=== PATIENT | female | born 1990 | race African-American/Black ===

== ENCOUNTER 2018-07-18 00:16 | Observation (INO) | payer SELFPAY ==
[~2018-07-18] VITALS: Ht 162.6 cm; Wt 86.2 kg
[2018-07-18 01:34] LABS: Urine Bacteria FEW /hpf (None Seen); Urine Blood TRACE /uL (Negative); Urine Mucus FEW (None Seen); Urine Sperm PRESENT /hpf (None Seen); Urine WBC 72 /hpf (0 - 5)
[2018-07-18] MEDS ORDERED: PREN-96 PO (01:50)
[2018-07-18 01:53] LABS: Alcohol, Urine < 3.0 mg/dL (0-5); Amphetamine Screen, Urine NEGATIVE (NEGATIVE); Barbiturate Scree,Urine NEGATIVE (NEGATIVE); Benzodiazephine Screen, Urine NEGATIVE (NEGATIVE); Cannabinoid Screen, Urine NEGATIVE (NEGATIVE); Cocaine Screen, Urine NEGATIVE (NEGATIVE); Opiate Scree,Urine NEGATIVE (NEGATIVE); Phencyclidine Screen, Urine NEGATIVE (NEGATIVE)
== END 2018-07-18 02:12 | disposition home or self-care (01) | DRG 833 ==
LOC: LDRP 00:16
PROVIDERS: ADMIT Obstetrics & Gynecology; ATTEND Obstetrics & Gynecology
DX: O62.9 Abnormality of forces of labor, unspecified (principal); O26.893 Other specified pregnancy related conditions, third trimester; R10.9 Unspecified abdominal pain; Z3A.39 39 weeks gestation of pregnancy
CPT/HCPCS: 59025; 80307; 81001; 81002; G0378

== ENCOUNTER 2019-03-07 12:30 | Emergency (ER) | payer MEDICAID ==
[~2019-03-07] VITALS: Ht 154.9 cm; Wt 85.3 kg
[~2019-03-07 12:30] MED LIST: PREN-96 PO
[2019-03-07 14:24] VITALS: BP 133/94
== END 2019-03-07 15:01 | disposition home or self-care (01) ==
LOC: ER 12:35
DX: O26.892 Other specified pregnancy related conditions, second trimester (principal); R10.30 Lower abdominal pain, unspecified; Z3A.19 19 weeks gestation of pregnancy
CPT/HCPCS: 76805; 81002

== ENCOUNTER 2019-05-09 08:25 | Observation (INO) | payer MEDICAID ==
[2019-05-09] MEDS ORDERED: BETAMETHASONE ACET (6MG/ML) 5ML VIAL IM ONE (09:30)
[2019-05-09] MEDS ORDERED: LACTATED RINGER'S 1,000 ML IV ONE (09:30)
[2019-05-09 09:32] LABS: Urine Bacteria FEW /hpf (None Seen); Urine Blood TRACE /uL (Negative); Urine Mucus FEW (None Seen); Urine Specific Gravity 1.021 (1.001-1.035); Urine WBC 11 /hpf (0 - 5)
[2019-05-09 09:44] LABS: Alcohol, Urine < 3.0 mg/dL (0-5); Amphetamine Screen, Urine NEGATIVE (NEGATIVE); Barbiturate Scree,Urine NEGATIVE (NEGATIVE); Benzodiazephine Screen, Urine NEGATIVE (NEGATIVE); Cannabinoid Screen, Urine NEGATIVE (NEGATIVE); Cocaine Screen, Urine NEGATIVE (NEGATIVE); Opiate Scree,Urine NEGATIVE (NEGATIVE); Phencyclidine Screen, Urine NEGATIVE (NEGATIVE)
[2019-05-09] MEDS ORDERED: NIFEdipine 10 MG CAP PO ONE (09:45)
[2019-05-09] MEDS ORDERED: SODIUM CHLORIDE 0.9% 1,000 ML IV SCH (11:15)
[2019-05-09] MEDS ORDERED: cefTRIAXone 1GM/50ML D5W 50 ML IV ONE (11:15)
[2019-05-09] MEDS ORDERED: NIF10C GT (11:20)
[2019-05-10] MEDS ORDERED: NITR-39 PO (10:27)
== END 2019-05-09 12:55 | disposition home or self-care (01) | DRG 563 ==
LOC: LDRP 08:25
PROVIDERS: ADMIT Specialist; ATTEND Specialist
DX: O60.03 Preterm labor without delivery, third trimester (principal); O26.893 Other specified pregnancy related conditions, third trimester; N89.8 Other specified noninflammatory disorders of vagina; Z3A.28 28 weeks gestation of pregnancy
CPT/HCPCS: 59025; 76815; 76817; 80307; 81001; 81002; 96365; 96372; G0378; J0696; J0702; J7030; 96361

== ENCOUNTER 2019-05-10 09:50 | Observation (INO) | payer MEDICAID ==
[~2019-05-10] VITALS: Ht 154.9 cm; Wt 86.2 kg
[~2019-05-10 09:50] MED LIST changes: +NIF10C GT
[2019-05-10] MEDS ORDERED: BETAMETHASONE ACET (6MG/ML) 5ML VIAL IM ONE (10:00)
[2019-05-10] MEDS ORDERED: NITR-39 PO (10:27)
[2019-05-10] MEDS ORDERED: NIFEdipine 10 MG CAP PO ONE (10:45)
== END 2019-05-10 11:05 | disposition home or self-care (01) | DRG 563 ==
LOC: LDRP 09:50
PROVIDERS: ADMIT Specialist; ATTEND Specialist
DX: O60.03 Preterm labor without delivery, third trimester (principal); Z3A.28 28 weeks gestation of pregnancy
CPT/HCPCS: 59025; 81002; 96372; G0378

== ENCOUNTER 2019-05-17 09:30 | Observation (INO) | payer MEDICAID ==
[~2019-05-17 09:30] MED LIST changes: +NITR-39 PO
== END 2019-05-17 10:45 | disposition home or self-care (01) | DRG 563 ==
LOC: LDRP 09:30
PROVIDERS: ADMIT Obstetrics & Gynecology; ATTEND Obstetrics & Gynecology
DX: O60.03 Preterm labor without delivery, third trimester (principal); Z3A.29 29 weeks gestation of pregnancy
CPT/HCPCS: 59025; 76818; 81002; G0378

== ENCOUNTER 2019-05-24 09:30 | Observation (INO) | payer MEDICAID | END 2019-05-24 11:06 | disposition home or self-care (01) | DRG 563 | LOC: LDRP 09:30 | PROVIDERS: ADMIT Specialist; ATTEND Specialist | DX: O60.03 Preterm labor without delivery, third trimester (principal); Z3A.30 30 weeks gestation of pregnancy | CPT/HCPCS: 59025; 76818; 81002; G0378 ==

== ENCOUNTER 2019-05-26 19:40 | Observation (INO) | payer MEDICAID ==
[~2019-05-26] VITALS: Ht 154.9 cm; Wt 79.4 kg
[2019-05-26] MEDS ORDERED: TERBUTALINE SULFATE 1 MG/ML 1ML VIAL SC ONE (19:56)
[2019-05-26] MEDS: TERBUTALINE SULFATE 1 MG/ML 1ML VIAL SC SCH ×2 (19:58→20:20)
== END 2019-05-26 21:50 | disposition home or self-care (01) | DRG 566 ==
LOC: LDRP 19:40
PROVIDERS: ADMIT Obstetrics & Gynecology; ATTEND Obstetrics & Gynecology
DX: O26.873 Cervical shortening, third trimester (principal); O62.9 Abnormality of forces of labor, unspecified; Z3A.30 30 weeks gestation of pregnancy
CPT/HCPCS: 59025; 76815; 81002; 96372; G0378; J3105

== ENCOUNTER 2019-05-31 09:45 | Observation (INO) | payer MEDICAID | END 2019-05-31 11:22 | disposition home or self-care (01) | DRG 563 | LOC: LDRP 09:45 | PROVIDERS: ADMIT Obstetrics & Gynecology; ATTEND Obstetrics & Gynecology | DX: O60.03 Preterm labor without delivery, third trimester (principal); Z3A.31 31 weeks gestation of pregnancy | CPT/HCPCS: 59025; 76818; 81002; G0378 ==

== ENCOUNTER 2019-06-07 09:45 | Observation (INO) | payer MEDICAID | END 2019-06-07 10:30 | disposition left against medical advice (07) | DRG 566 | LOC: LDRP 09:45 | PROVIDERS: ADMIT Specialist; ATTEND Specialist | DX: O62.9 Abnormality of forces of labor, unspecified (principal); Z3A.32 32 weeks gestation of pregnancy | CPT/HCPCS: 81002; G0378 ==

== ENCOUNTER 2019-06-11 11:00 | Observation (INO) | payer MEDICAID | END 2019-06-11 14:00 | disposition home or self-care (01) | DRG 563 | LOC: LDRP 11:00 | PROVIDERS: ADMIT Specialist; ATTEND Specialist | DX: O60.03 Preterm labor without delivery, third trimester (principal); Z3A.32 32 weeks gestation of pregnancy | CPT/HCPCS: 59025; 76805; 81002; G0378 ==

== ENCOUNTER 2019-07-02 17:42 | Observation (INO) | payer MEDICAID ==
[~2019-07-02] VITALS: Ht 154.9 cm; Wt 86.2 kg
== END 2019-07-02 21:15 | disposition home or self-care (01) | DRG 566 ==
LOC: LDRP 17:42
PROVIDERS: ADMIT Obstetrics & Gynecology; ATTEND Obstetrics & Gynecology
DX: O62.9 Abnormality of forces of labor, unspecified (principal); Z3A.35 35 weeks gestation of pregnancy
CPT/HCPCS: 59025; 81002; G0378

== ENCOUNTER 2019-07-07 04:38 | Inpatient (IN) | payer MEDICAID ==
[~2019-07-07] VITALS: Ht 154.9 cm; Wt 85.3 kg
[2019-07-07] MEDS ORDERED: LACT. RINGERS/OXYTOCIN 20UNITS 1,000 ML IV SCH (05:09)
[2019-07-07] MEDS ORDERED: LACTATED RINGER'S 1,000 ML IV SCH (05:09)
[2019-07-07] MEDS ORDERED: LIDOCAINE 2%HCL (LOCAL ANESTH.) INJ 20ML MDV ID ONE (05:15)
[2019-07-07] MEDS ORDERED: METHYLERGONOVINE MALEATE 0.2 MG/ML AMP IM PRN (05:15)
[2019-07-07] MEDS ORDERED: DERMOPLAST 60ML BOTTLE TOP PRN (05:15)
[2019-07-07] MEDS ORDERED: CARBOPROST TROMETHAMINE 250 MCG/1ML VIAL IM PRN (05:15)
[2019-07-07] MEDS ORDERED: PHISODERM TOP SOLN 240ML BTL TOP PRN (05:15)
[2019-07-07] MEDS ORDERED: WITCH HAZEL-GLYCERIN PAD TOP PRN (05:15)
[2019-07-07] MEDS ORDERED: CLINDAMYCIN 900MG IV 50 ML IV SCH (06:00)
[2019-07-07 06:17] LABS: Basophils # (auto) 0 uL; Basophils % (auto) 0.2 % (0.0-2.0); Eosinophils # (auto) 0 uL; Eosinophils % (auto) 0.3 % (0.0-7.0); Hematocrit 36.9 % (36.0-46.0); Hemoglobin 11.9 g/dL (12.2-16.2); Lymphocytes # (auto) 1.9 uL; Lymphocytes % (auto) 21.8 % (10.0-50.0); Mean Corpuscular Hemoglobin 23.6 pg (28.0-32.0); Mean Corpuscular Hgb Conc. 32.2 g/dL (32.0-36.0); Mean Corpuscular Volume 73.3 fL (80.0-100.0); Monocytes # (auto) 0.6 uL; Monocytes % (auto) 6.6 % (0.0-12.0); Neutrophils # (auto) 6.2 uL; Neutrophils % (auto) 71.1 % (37.0-80.0); Nucleated Red Blood Cells % 0.2 %; Platelet Count (auto) 150 10^3/uL (140-450); Red Blood Cells 5.04 10^6/uL (4.0-5.20); Red Cell Distribution Width 16.3 % (11.8-14.3); White Blood Cell 8.7 10^3/uL (4.4-10.8)
[2019-07-07 06:31] LABS: Urine Bacteria NONE SEEN /hpf (None Seen); Urine Blood 2+ /uL (Negative); Urine Mucus FEW (None Seen); Urine Specific Gravity 1.023 (1.001-1.035); Urine WBC 2 /hpf (0 - 5)
[2019-07-07 06:33] LABS: INR 0.99 (0.9-1.15); Partial Thromboplastin Time 29.3 sec (23.64-32.05)
[2019-07-07 06:45] LABS: Alcohol, Urine < 3.0 mg/dL (0-5); Amphetamine Screen, Urine NEGATIVE (NEGATIVE); Barbiturate Scree,Urine NEGATIVE (NEGATIVE); Benzodiazephine Screen, Urine NEGATIVE (NEGATIVE); Cannabinoid Screen, Urine NEGATIVE (NEGATIVE); Cocaine Screen, Urine NEGATIVE (NEGATIVE); Opiate Scree,Urine NEGATIVE (NEGATIVE); Phencyclidine Screen, Urine NEGATIVE (NEGATIVE)
[2019-07-07 06:49] LABS: Albumin 2.8 g/dL (3.4-5.0); BUN/Creatinine Ratio 9.7; Potassium 3.4 mmol/L (3.5-5.1)
[2019-07-07 06:52] LABS: Bilirubin, Total 0.4 mg/dL (0.2-1.0); Total Protein 6.6 g/dL (6.4-8.2)
[2019-07-07] MEDS: IBUPROFEN 600 MG TAB PO PRN ×3 (06:52→22:54)
[2019-07-07] MEDS: ACETAMINOPHEN 325 MG TAB PO PRN ×2 (10:32→17:36)
[2019-07-07 11:07] VITALS: BP 111/49
[2019-07-07 15:25] VITALS: BP 90/53
[2019-07-07 19:00] VITALS: BP 116/65
--- NOTE | 2019-07-07 23:00 | NUR ---
IV removal IV DC'd with sterile technique, catheter fully intact. Pressure dressing applied to site. Patient tolerated procedure well.
[2019-07-07 23:11] VITALS: BP 110/62
[2019-07-08 03:00] VITALS: BP 122/73
[2019-07-08] MEDS: IBUPROFEN 600 MG TAB PO PRN ×2 (03:23→08:19)
[2019-07-08 07:17] VITALS: BP 103/58
[2019-07-08] MEDS ORDERED: NIF10C GT (07:54)
--- NOTE | 2019-07-08 08:00 | NUR ---
Bottle-feeding Education: Patient encouraged to breastfeed. Benefits of and the risk of providing formula to was discussed. Patient verbalized understanding of the benefits and is aware of risk and insists on bottle-feeding. Formula provided and instruction on formula preperation from the [facility] booklet reviewed with patient.
[2019-07-08 11:00] VITALS: BP 100/59
--- NOTE | 2019-07-08 11:30 | NUR ---
CALLED DELL FROM [facility] AND LET HER KNOW PATIENT STATES SHE HAS A OPEN CASE AND WOULD NOT SPECIFY ON WHY. DELL SPOKE WITH PATIENT OVER THE PHONE WHILE PATIENTS BREAKFAST MANAGER WAS ON PATIENTS CELL PHONE. PER DELL TOLD ME TO CANCEL [facility] NO NEED OPEN CASE IS FOR HER OLDEST CHILD THAT IS A RUNAWAY FROM HOME.
--- NOTE | 2019-07-08 11:47 | NUR ---
CANCEL [facility]IAL [facility] ORDER PATIENT CHANGED HER MIND AND WILL DO CAR SEAT CHALLENGE AND PATIENT STATES SHE HAS AN OPEN CASE WITH A BELT [employer] DRIER BUT IT IS FOR HER OLDEST SON WHO IS A RUNAWAY PER [facility] OKAY TO CANCEL SOCIAL SERVICE CONSULT.
--- NOTE | 2019-07-08 12:50 | NUR ---
Artificial Nipple Education: Encouraged mother to refrain from using artificial nipples which include a pacifier. Discussed the risk of artificial nipple use and its effect on effective . Mother verbalized understanding of information and continued to use artificial nipples.
[2019-07-08] MEDS: ACETAMINOPHEN 325 MG TAB PO PRN (13:19)
--- NOTE | 2019-07-08 14:35 | NUR ---
Discharge: Discharge instructions given as ordered. Pt encouraged to follow up with CEO as instructed. All questions and concerns addressed. Patient verbalized understanding. Medication reconciliation completed and copy given to patient. patient refused influenza and t-dap Patient encouraged to prepare to depart unit.
--- NOTE | 2019-07-08 15:06 | NUR ---
Discharge: Patient taken to vehicle via steady ambulation with all personal belongings, accompanied by staff and family member. No distress noted at time of departure, no adverse changes in status since initial assessment.
== END 2019-07-08 15:06 | disposition home or self-care (01) | DRG 560 ==
LOC: LDRP 04:38
PROVIDERS: ADMIT Obstetrics & Gynecology; ATTEND Obstetrics & Gynecology
PROC: 10E0XZZ Delivery of Products of Conception, External Approach (ICD-10-PCS; principal; 2019-07-07)
DX: O60.14X0 Preterm labor third trimester with preterm delivery third trimester, not applicable or unspecified (principal); O16.4 Unspecified maternal hypertension, complicating childbirth; O69.1XX0 Labor and delivery complicated by cord around neck, with compression, not applicable or unspecified; Z37.0 Single live birth; Z3A.36 36 weeks gestation of pregnancy; Z88.0 Allergy status to penicillin
CPT/HCPCS: 36415; 59025; 59409; 80053; 80307; 81001; 84112; 85025; 85610; 85730; 86850; 86900; 86901; 96361; 96366; G0378

== ENCOUNTER 2025-03-23 22:01 | Emergency (ER) | payer MEDICAID ==
[~2025-03-23] VITALS: Ht 157.5 cm; Wt 86.4 kg
[2025-03-23] MEDS: ONDANSETRON ODT 4 MG TAB PO ONE (00:15)
[2025-03-23] MEDS: ACETAMINOPHEN/CODEINE#3 (300/30mg) TAB PO ONE (00:15)
[~2025-03-23 22:01] MED LIST changes: -NIF10C GT; -NITR-39 PO
--- NOTE | 2025-03-23 22:45 | ED.PDOC ---
Musculoskeletal HPI Comments 34-year-old female presents to ER with complaints of right ankle pain x1 hour. Patient reports he started experiencing pain/swelling to right ankle 1 hour prior to arrival to ER. Denies any trauma/falls/known injury and rates her current pain a 10/10 to right ankle with radiation towards her right foot. No baudilio that she did take Tylenol for her pain with slight relief and presents to ER ambulatory on arrival, with steady gait, in no distress. Denies fever, numbness/tingling or any further symptoms/complaints Chief Complaint: Lower Extremity Time Seen by MD: 22:08 Primary Care Provider: BIBIANA Reviewed Notes: Nurses Notes, Medications, Allergies Allergies: Coded Allergies: Hydrocodone (Verified Allergy, Unknown, 03/23/25) Penicillins (Verified Allergy, Unknown, 09/15/19) hives Home Meds Reported Medications Vit W/ Ferrous Fumara ( One Daily) Daily Tab, 1 TAB PO DAILY, #90 TAB 3 Refills 07/18/18 Information Source: Patient Mode of Arrival: Ambulatory Past Medical History PAST MEDICAL HISTORY: Denies Surgical History: Tubal Ligation SENIOR OPERATIONS MANAGER History: Denies all SENIOR OPERATIONS MANAGER Hx Family History Family History: Unknown Social History Smoker: Non-Smoker Alcohol: Denies ETOH Use Drugs: Denies Drug Use Lives In: Home Constitutional: denies: chills, diaphoresis, fatigue, fever, malaise, sweats, weakness, others EENTM: denies: blurred vision, double vision, ear bleeding, ear discharge, ear drainage, ear pain, ear ringing, eye pain, eye redness, hearing loss, mouth pain, mouth swelling, nasal discharge, nose bleeding, nose congestion, nose pain, photophobia, tearing, throat pain, throat swelling, voice changes, others Respiratory: denies: cough, hemoptysis, orthopnea, SOB at rest, shortness of breath, SOB with excertion, stridor, wheezing, others Cardiovascular: denies: chest pain, dizzy spells, diaphoresis, Dyspnea on exertion, edema, irregular heart beat, left arm pain, lightheadedness, palpitations, PND, syncope, others Gastrointestinal: denies: abdomen distended, abdominal pain, blood streaked bowels, constipated, diarrhea, dysphagia, difficulty swallowing, hematemesis, melena, nausea, poor appetite, poor fluid intake, rectal bleeding, rectal pain, vomiting, others Genitourinary: denies: abnormal vagina bleeding, burning, dyspareunia, dysuria, flank pain, frequency, hematuria, incontinence, pain, , vagina discharge, urgency, others Neurological: denies: dizziness, fainting, headache, left sided numbness, left sided weakness, numbness, paresthesia, pre-existing deficit, right sided numbness, right sided weakness, seizure, speech problems, tingling, tremors, weakness, others Musculoskeletal: reports: others (As stated in HPI) Integumetry: reports: others (As stated in HPI) Allergic/Immunocompromised: denies: Difficulty Healing, Frequent Infections, Hives, Itching, others Hematologic/Lymphatic: denies: anemia, blood clots, easy bleeding, easy bruising, swollen glands, others Endocrine: denies: excessive hunger, excessive sweating, excessive thirst, excessive urination, flushing, intolerance to cold, intolerance to heat, unexplained weight gain, unexplained weight loss, others Psychiatric: denies: anxiety, bipolar disorder, depression, hopeless, panic disorder, schizophrenia, sleepless, suicidal, others Physical Exam General Appearance: No Apparent Distress, Obese HEENT: PERRL/EOMI Neck: Full Range of Motion, Non-Tender, Normal Respiratory: Chest Non-Tender, Lungs Clear, No Accessory Muscle Use, No Respiratory Distress, Normal Breath Sounds Cardiovascular: No Murmur, No Gallop, Regular Rate/Rhythm Breast Exam: Deferred Gastrointestinal: NOT DONE Genitalia: Deferred Pelvic: Deferred Rectal: Deferred Extremities: Normal capillary refill, Normal range of motion Musculoskeletal : Extremity Location: Ankle (TTP/minimal swelling noted to right lateral malleolus. No further skin changes noted. No other TTP to right lower extremity noted) Neurologic: Alert, No Motor Deficits, Normal Affect, Normal Mood, No Sensory Deficits Cerebellar Function: Normal Reflexes: Normal Skin: Dry, Normal Color, Warm Peripheral Pulses: 2+ femoral (R), 2+ femoral (L), 2+ dorsalis pedis (R), 2+ dorsalis pedis (L), 2+ Radial (R), 2+ Radial (L), 2+ Brachial (R), 2+ Brachial (L) Lymphatic: No Adenopathy Was a procedure done? Was a procedure done?: No Sedation Sedation?: No Differential Diagnosis EXT Differential Diagnosis: Cellulitis, Fracture, Dislocation, Neurovascular injury X-Ray, Labs, Meds, VS Vital Signs Date Time Temp Pulse Resp B/P (MAP) Pulse Ox O2 Delivery O2 Flow Rate FiO2 03/23/25 22:10 98.5 95 18 115/65 (82) 97 98.5 PATIENT: NATALI MARTINEZACCT: [id number]: [id number] : 1990 LOC: ER ROOM / BED: / AGE / SEX: 34 / F ADM STATUS: REG ER SERVICE 34 ORDERING PHYSICIAN: SHERRY CHAPA PROCEDURE(s): RANKL - R ANKLE 3 VIEW REASON: right ankle pain ORDER NUMBER(s): [id number], ACCESSION NUMBER(s): [id number] CLINICAL INDICATION: right ankle pain TECHNIQUE: 3 radiographic views of the right ankle were obtained. Comparison: None FINDINGS/IMPRESSION: Bony alignment is normal. There are no fractures or dislocations. Ankle mortise is symmetrical. ATED BY: TAYLOR SNELL Jr., DO DICTATED DATE/TIME: 03/23/252306 SIGNED BY: TAYLOR SNELL Jr., SIGNED DATE/TIME: 03/23/252306 CC: Right ankle x-ray reviewed Patient neurovascularly intact Tylenol #3 1 table p.o. ordered Zofran 4 mg p.o. ordered Patient had improvement in symptoms and in no distress during discharge Jan wrap applied Advised on elevation and alternate ice on/off as needed for pain/swelling Advised to follow up with PCP and orthopedics in 1-2 days Patient verbalized understanding and agreeable with current plan of care Advised to return to ER immediately if symptoms worsen Images Reviewed?: Images reviewed and evaluated by me Time of 1ST Reevaluation: 22:42 Reevaluation 1ST: N/A Patient Education/Counseling: Diagnosis, Treatment, Prognosis, Need For Follow Up Family Education/Counseling: No Family Present Departure 1 Departure Time of Disposition: 23:12 Impression: Primary Impression: Right ankle sprain Qualified Codes: S93.401A - Sprain of unspecified ligament of right ankle, initial encounter Disposition: HOME / SELF CARE / HOMELESS Condition: Stable e-Prescriptions Ibuprofen (Ibuprofen) 800 Mg Tab 1 TAB PO TID PRN, #30 TAB 0 Refills Prov: SHERRY CHAPA 03/23/25 Discharged With: Friend Critical Care Note Critical Care Time?: No Stability Stability form required: No Heart Score Heart Score: Heart Score Response (Comments) Value History N/A 0 EKG N/A 0 Age N/A 0 Risk Factors N/A 0 Troponin N/A 0 Total 0 SHERRY CHAPA Mar 23, 2025 22:44
--- NOTE | 2025-03-23 23:10 | DVH ---
CLINICAL INDICATION: right ankle pain TECHNIQUE: 3 radiographic views of the right ankle were obtained. Comparison: None FINDINGS/IMPRESSION: Bony alignment is normal. There are no fractures or dislocations. Ankle mortise is symmetrical.
[2025-03-23] MEDS ORDERED: IBUP-1456 PO (23:17)
[2025-03-24 00:12] VITALS: BP 125/92; PULSE 78; RESP 18; TEMP 97.7; O2SAT 98
== END 2025-03-24 00:19 | disposition home or self-care (01) ==
LOC: ER 22:01
DX: S93.401A Sprain of unspecified ligament of right ankle, initial encounter (principal); Z98.51 Tubal ligation status; Z88.5 Allergy status to narcotic agent; Z88.0 Allergy status to penicillin; Z79.899 Other long term (current) drug therapy; X58.XXXA Exposure to other specified factors, initial encounter; Y93.89 Activity, other specified; Y92.89 Other specified places as the place of occurrence of the external cause; Y99.8 Other external cause status
CPT/HCPCS: 73610